=== PATIENT | male | born 1995 | race Caucasian/White ===

== ENCOUNTER 2017-03-08 14:07 | Emergency (ER) | payer OTHER ==
[~2017-03-08] VITALS: Ht 193 cm; Wt 88.5 kg
[2017-03-08 14:26] VITALS: BP 133/71
== END 2017-03-08 15:52 | disposition home or self-care (01) ==
LOC: ER 14:08
DX: R51 Headache (principal); M54.2 Cervicalgia; M54.6 Pain in thoracic spine; V43.52XA Car driver injured in collision with other type car in traffic accident, initial encounter; Y92.488 Other paved roadways as the place of occurrence of the external cause; Y93.89 Activity, other specified; Y99.8 Other external cause status
CPT/HCPCS: 70450; 72074; 72100; 72125; 99284; A4606; Z7610